=== PATIENT | female | born 2000 | race Caucasian/White ===

== ENCOUNTER 2021-07-27 09:45 | Emergency (ER) | payer BC, OTHER ==
[~2021-07-27] VITALS: Ht 170.2 cm; Wt 61.4 kg
--- NOTE | 2021-07-27 09:52 | PHYS DOC ---
Past History Alcohol Use: None General Adult EDM: Chief Complaint: ABDOMINAL PAIN HPI: HPI: Patient is a 21-year-old female who is brought in by her father for evaluation of generalized abdominal pain. She reports the pain began this morning. She reports nausea, no vomiting. She denies any diarrhea or constipation symptoms. She denies urinary symptoms. She reports that her LMP was "last month." She is a very poor historian, she frequently yells and moans and cries when asked any questions by me or the nursing staff, refuses to give more detailed answers to most questions. She reports no previous history of abdominal surgeries. No previous similar symptoms. She denies chest pain, cough, dyspnea. She denies any abdominal trauma or injury. Her father reports that her affect is baseline for her. Review of Systems: Review of Systems: Constitutional: Denies fever or chills HENT: Denies nasal congestion or sore throat Respiratory: Denies cough or shortness of breath Cardiovascular: Denies chest pain or palpitations, no edema GI: Generalized abdominal pain, nausea, no vomiting, no bowel habit changes reported : Denies Victor Manuel symptoms Musculoskeletal: Denies back pain Integument: Denies rash Neurologic: Denies headache, focal weakness, or syncope Psychiatric: Anxiety Physical Exam: PE: Constitutional: Well developed, well nourished, no acute distress, non-toxic appearance. She is rolling around on the ED gurney, in a curled up position, lying sideways or prone, moaning and crying. She is not acutely ill- appearing. HENT: Normocephalic, atraumatic, oropharynx is patent and clear, mucous membranes are moist. Eyes: PERRL, EOMI, conjunctiva normal, no discharge. Sclera anicteric. Neck: Normal range of motion, no tenderness, supple, no stridor. [] Cardiovascular:Heart rate regular rhythm, +2 radial and +2 posterior tibial pulses bilaterally Lungs & Thorax: Lungs are clear to auscultation bilaterally without rales, rhonchi or wheezes. No evidence of respiratory distress. Abdomen: Abdomen is soft, nondistended, normal bowel sounds, diffuse and nonfocal mid, periumbilical, bilateral lower abdominal tenderness, inconsistent voluntary guarding, no rebound tenderness, no rigidity, no CVA tenderness. No flank abdominal ecchymosis. Skin: Warm, dry, no erythema, no rash. No jaundice. Back: No tenderness, no CVA tenderness. [] Extremities: No tenderness, no cyanosis, no clubbing, ROM intact, no edema. No calf tenderness. Neurologic: Alert and oriented X 3, normal motor function, normal sensory function, no focal deficits noted. [] Psychologic: Affect is relatively bizarre, histrionic, juvenile EKG: EKG: [] Radiology/Procedures: Radiology/Procedures: IMAGING REPORT Signed PATIENT: RIOS PARISH LACCOUNT: [id number] : 2000 LOCATION: ER AGE: 21 SEX: F EXAM STATUS: REG ER ORD. PHYSICIAN: GINA CRABTREE DO REASON: generalized abdominal pain, OMNI 300, 75ml PROCEDURE: CT ABD PELV W/ IV CONTRST ONLY CT ABDOMEN+PELVIS W History: Generalized abdominal pain. Comparison: None. Technique: CT of the abdomen and pelvis with intravenous contrast. Findings: The lung bases are clear. The liver, gallbladder, pancreas, spleen, adrenal glands, and kidneys are within normal limits. The stomach and small bowel are within normal limits. Normal appendix. No colonic wall thickening or pericolonic inflammatory changes. The uterus is unremarkable. Slight tubular appearance in the right adnexa. Small pelvic cul-de-sac free fluid. The bladder wall is mildly thickened circumferentially. The abdominal pelvic vasculature is within normal limits. There are few left periaortic retroperitoneal lymph nodes measuring up to 9 mm short axis (axial 41). Soft tissues are unremarkable. Disc space narrowing at L5-S1 may be developmental or degenerative. Impression: 1. Tubular appearance in the right adnexa and small pelvic cul-de-sac free fluid. Findings may represent hydrosalpinx. Correlate for pelvic tenderness. Consider pelvic ultrasound for further evaluation. 2. Mild circumferential wall thickening of the bladder may be due to incomplete distention, correlate for possible UTI. ------ Exposure: One or more of the following individualized dose reduction techniques were utilized for this examination: 1. Automated exposure control 2. Adjustment of the mA and/or kV according to patient size 3. Use of iterative reconstruction technique. Electronically signed by: John Ko MD (07/27/2021 11:19 AM) [id number] DICTATED AND SIGNED BY: JOHN KO MD DATE: 07/27/21 1110 CC: GINA CRABTREE DO; PCP,NO ~ IMAGING REPORT Signed PATIENT: RIOS PARISH: [id number] : 2000 LOCATION: ER AGE: 21 SEX: F EXAM STATUS: REG ER ORD. PHYSICIAN: GINA CRABTREE DO REASON: pelvic pain, possible hydrosalpinx on CT PROCEDURE: US PELVIS W/TV US PELVIS W/TV History: Pelvic pain, possible hydrosalpinx Comparison: CT 07/27/2021 Technique: Sonographic examination of the pelvis was performed with transabdominal and transvaginal technique. Findings: Uterus- Uterine parenchyma: Homogeneous without fibroids. Uterine measurements: 9.5 x 4.9 x 3.2 cm Cervix: Unremarkable. Endometrium- Endometrial Stripe: No abnormal fluid collections in the endometrial cavity, no obvious mass, and no abnormal blood flow within the endometrium by Doppler. Thickness: 6 mm multiple. Adnexa- Right Ovary: Identified and appears normal. Additionally, there is a right ovarian cyst measuring 2.8 x 1.7 x 1.7 cm Size: 4.6 x 2.0 x 3.7 cm Doppler: Normal. Left Ovary: Identified and appears normal. 1.6 cm dominant follicle Size: 4.2 x 2.4 x 2.9 cm Doppler: Normal. Other: No dilated are fluid filled fallopian tubes identified. Appears to be loops of small small bowel in the cul-de-sac. Small pelvic cul-de-sac free fluid which may be physiologic. Impression: 1. Right paraovarian cyst measuring 2.8 cm and normal bilateral ovarian follicles. No hydrosalpinx identified. Appearance on comparison CT likely due to combination of small bowel loops and right paraovarian cyst. 2. No evidence of ovarian torsion. Electronically signed by: John Ko MD (07/27/2021 12:31 PM) [id number] DICTATED AND SIGNED BY: JOHN KO MD DATE: 07/27/21 1218 CC: GINA CRABTREE DO; PCP,NO ~ Heart Score: C/O Chest Pain: No Risk Factors: Risk Factors: DM, Current or recent (<one month) smoker, HTN, HLP, family history of CAD, obesity. Risk Scores: Score 0 - 3: 2.5% MACE over next 6 weeks - Discharge Home Score 4 - 6: 20.3% MACE over next 6 weeks - Admit for Clinical Observation Score 7 - 10: 72.7% MACE over next 6 weeks - Early Invasive Strategies Course & Med Decision Making: Course & Med Decision Making Pertinent Labs and Imaging studies reviewed. (See chart for details) The patient is given IV fluids, IV morphine, IV Zofran. She is resting comfortably, reports no further pain. She appears clinically much improved. She is cooperative. I have discussed all the findings, differential diagnosis and plan of care with her. She admits that she has had multiple previous ovarian cyst issues in the past. I recommended she contact her primary care physician and tobacco feeder catcher for follow-up. No indication for further invasive exams, imaging or admission at this time based on current clinical presentation. Return precautions are given. She is comfortable with the plan for discharge home. Aubrey Disclaimer: Aubrey Disclaimer: This electronic medical record was generated, in whole or in part, using a voice recognition dictation system. Departure Departure: Impression: Primary Impression: Right ovarian cyst Disposition: HOME / SELF CARE / HOMELESS Condition: STABLE Patient Instructions: Ovarian Cyst Additional Instructions: Use the medicine as needed/as directed. Return to the ER for more severe pain, uncontrolled vomiting, temperature of 100.4 or higher, or any other concerns. Please contact your primary care doctor for follow-up. Scripts Hydrocodone Bit/Acetaminophen (HYDROCODONE-APAP 5-325 ) 1 Each Tablet 1 TAB PO PRN Q6HRS PRN for PAIN, #15 TAB 0 Refills Prov: GINA CRABTREE DO 07/27/21 Ondansetron (ONDANSETRON ODT) 4 Mg Tab.rapdis 1 TAB PO PRN Q6-8HRS for nausea and vomiting, #20 TAB Prov: GINA CRABTREE DO 07/27/21 GINA CRABTREE DO Jul 27, 2021 09:52
[2021-07-27] MEDS ORDERED: MORPHINE SULFATE 4 MG/ML DISP.SYRIN. IV ONE (10:00)
[2021-07-27] MEDS ORDERED: IV NORMAL SALINE 1,000ML 1,000 ML IV ONE (10:00)
[2021-07-27] MEDS ORDERED: ONDANSETRON PF 4 MG/2 ML VIAL. IVP ONE (10:00)
[2021-07-27 10:26] LABS: BASO # 0.1 x10^3/uL (0.0-0.2); BASO % 1 % (0-3); EOS # 0.2 x10^3/uL (0.0-0.7); EOS % 2 % (0-3); HEMATOCRIT 40.2 % (36.0-47.0); HEMOGLOBIN 13.2 g/dL (12.0-15.5); LYMPH # 1.4 x10^3/uL (1.0-4.8); LYMPH % 13 % (24-48); MEAN CORPUSCULAR HEMOGLOBIN 30 pg (25-35); MEAN CORPUSCULAR HGB CONC 33 g/dL (31-37); MEAN CORPUSCULAR VOLUME 91 fL (79-100); MONO # 0.4 x10^3/uL (0.0-1.1); MONO % 4 % (0-9); NEUT # 8.6 x10^3uL (1.8-7.7); NEUT % 81 % (31-73); PLATELET COUNT 231 x10^3/uL (140-400); RED BLOOD COUNT 4.45 x10^6/uL (3.50-5.40); RED CELL DISTRIBUTION WIDTH 14.1 % (11.5-14.5); WHITE BLOOD COUNT 10.7 x10^3/uL (4.0-11.0)
[2021-07-27 10:35] LABS: CALCIUM 9.1 mg/dL (8.5-10.1); CREATININE 0.9 mg/dL (0.6-1.0); GFR 78.3
[2021-07-27 10:37] LABS: PREG TEST PT QUAL NEGATIVE (NEG)
[2021-07-27 10:39] LABS: POTASSIUM 4.6 mmol/L (3.5-5.1)
[2021-07-27 10:41] LABS: ALBUMIN 3.8 g/dL (3.4-5.0); TOTAL BILIRUBIN 0.5 mg/dL (0.2-1.0); TOTAL PROTEIN 7.8 g/dL (6.4-8.2)
[2021-07-27] MEDS ORDERED: IOHEXOL 300 MG/ML 75 ML VIAL. IV ONE (10:45)
--- NOTE | 2021-07-27 11:21 | RAD ---
CT ABDOMEN+PELVIS W History: Generalized abdominal pain. Comparison: None. Technique: CT of the abdomen and pelvis with intravenous contrast. Findings: The lung bases are clear. The liver, gallbladder, pancreas, spleen, adrenal glands, and kidneys are w ithin normal limits. The stomach and small bowel are within normal limits. Normal appendix. No colonic wall thickening or pericolonic inflammatory changes. The uterus is unremarkable. Slight tubular appearance in the right adnexa. Small pelvic cul-de-sac fr ee fluid. The bladder wall is mildly thickened circumferentially. The abdominal pelvic vasculature is within normal limits. There are few left periaortic retroperitone al lymph nodes measuring up to 9 mm short axis (axial 41). Soft tissues are unremarkable. Disc space narrowing at L5-S1 may be developmental or degenerative. Impression: 1. Tubular appearance in the right adnexa and small pelvic cul-de-sac free fluid. Findings may repre sent hydrosalpinx. Correlate for pelvic tenderness. Consider pelvic ultrasound for further evaluation . 2. Mild circumferential wall thickening of the bladder may be due to incomplete distention, correlat e for possible UTI. ------ Exposure: One or more of the following individualized dose reduction techniques were utilized for thi s examination: 1. Automated exposure control 2. Adjustment of the mA and/or kV according to patient size 3. Use of iterative reconstruction technique. Electronically signed by: John Ko MD (07/27/2021 11:19 AM) [id number]
[2021-07-27 11:53] LABS: CLARITY,URINE CLEAR; COLOR,URINE YELLOW; GLUCOSE,URINE NEG (NEG); NITRITE,URINE NEG (NEG); UROBILINOGEN,URINE 0.2 mg/dL (0.2 mg/dL)
[2021-07-27 11:57] LABS: BARBITURATES NEG (NEG); BENZODIAZEPINES NEG (NEG); CANNABINOIDS NEG (NEG); COCAINE NEG (NEG); METHADONE NEG (NEG); OPIATES POS (NEG); PHENCYCLIDINE NEG (NEG)
[2021-07-27 11:58] LABS: AMPHETAMINE/METHAMPHETAMINE NEG (NEG)
[2021-07-27 12:05] LABS: BACTERIA,URINE 0 /HPF (0-FEW); SQUAMOUS EPITHELIAL CELL,UR MANY /LPF
--- NOTE | 2021-07-27 12:33 | RAD ---
US PELVIS W/TV History: Pelvic pain, possible hydrosalpinx Comparison: CT 07/27/2021 Technique: Sonographic examination of the pelvis was performed with transabdominal and transvaginal t echnique. Findings: Uterus- Uterine parenchyma: Homogeneous without fibroids. Uterine measurements: 9.5 x 4.9 x 3.2 cm Cervix: Unremarkable. Endometrium- Endometrial Stripe: No abnormal fluid collections in the endometrial cavity, no obvious mass, and no abnormal blood flow within the endometrium by Doppler. Thickness: 6 mm multiple. Adnexa- Right Ovary: Identified and appears normal. Additionally, there is a right ovarian cyst measuring 2.8 x 1.7 x 1.7 cm Size: 4.6 x 2.0 x 3.7 cm Doppler: Normal. Left Ovary: Identified and appears normal. 1.6 cm dominant follicle Size: 4.2 x 2.4 x 2.9 cm Doppler: Normal. Other: No dilated are fluid filled fallopian tubes identified. Appears to be loops of small small bow el in the cul-de-sac. Small pelvic cul-de-sac free fluid which may be physiologic. Impression: 1. Right paraovarian cyst measuring 2.8 cm and normal bilateral ovarian follicles. No hydrosalpinx i dentified. Appearance on comparison CT likely due to combination of small bowel loops and right parao varian cyst. 2. No evidence of ovarian torsion. Electronically signed by: John Ko MD (07/27/2021 12:31 PM) [id number]
[2021-07-27] MEDS ORDERED: ONDA4TAB12 PO (12:47)
[2021-07-27] MEDS ORDERED: HYDR-2155 PO (12:47)
[2021-07-27 12:54] VITALS: BP 102/50
== END 2021-07-27 12:54 | disposition home or self-care (01) ==
LOC: ER 09:45
DX: N83.201 Unspecified ovarian cyst, right side (principal)
CPT/HCPCS: 36415; 74177; 76830; 76856; 80053; 80307; 81001; 83690; 84703; 85025; 96361; 96374; 96375; 99285; J2270; J2405; J7030; Q9967